=== PATIENT | female | born 1930 | race Caucasian/White ===

== ENCOUNTER → 2018-06-15 | Outpatient (CLI) | payer MEDICARE, OTHER ==
[~2018-06-15] MED LIST: COLACE 100 MG100 MG PO; ELIQUIS5 MG PO; OXYCODONE HCL 55 MG PO; SYNTHROID50 MCG PO; [UNRECOGNIZED DRUG - OTHER] PO
--- NOTE | 2018-06-15 16:38 | 2DMMODE ---
[place] [address] 2 D/M-MODE ECHOCARDIOGRAM Name: ROVERTO MOLINA Room: [facility]#: [id number] Admission: 06/15/18 Attend Phys: Kim Jiang Discharge: Date of : [birth year] Date of Service: 06/15/18 1638 Report #: [id number] THIS REPORT FOR: //name// APPROVED REPORT Study performed: 06/15/2018 15:47:16 EXAM: Comprehensive 2D, Doppler, and color-flow Echocardiogram Patient Location: Out-Patient Status: routine BSA: 1.79 HR: 78 bpm BP: 174/80 mmHg Other Information Study Quality: Good Indications Chest Pain 2D Dimensions IVSd: 11.30 (7-11mm) LVOT Diam: 20.68 (18-24mm) LVDd: 47.85 mm PWd: 10.05 (7-11mm) Ascending Ao: 31.42 (22-36mm) LVDs: 28.55 (25-40mm) Aortic Root: 28.43 mm Volumes Left Atrial Volume (Systole) LA ESV Index: 17.30 mL/m2 Aortic Valve AoV Peak Kyler.: 1.63 m/s AO Peak Gr.: 10.57 mmHg LVOT Max P.01 mmHg AO Mean Gr.: 5.12 mmHg LVOT Mean P.57 mmHg LVOT Max V: 1.00 m/s AO V2 VTI: 32.56 cm LVOT Mean V: 0.56 m/s MARITZA (VTI): 1.89 cm2 LVOT V1 VTI: 18.30 cm AI Meeker: 2.44 m/s2 AI PHT: 548.60 ms Mitral Valve E/A Ratio: 0.92 MV Decel. Time: 346.01 [place] [address] 2 D/M-MODE ECHOCARDIOGRAM Name: ROVERTO MOLINA Room: [facility]#: [id number] Admission: 06/15/18 Attend Phys: Kim Jiang Discharge: Date of : 11/26/[birth year] Date of Service: 06/15/18 1638 Report #: [id number] MV E Max Kyler.: 0.79 m/s MV PHT: 100.34 ms MVA (PHT): 2.19 cm2 TDI E/Lateral E': 13.17 E/Medial E': 8.78 Medial E' Kyler.: 0.09 m/s Lateral E' Kyler.: 0.06 m/s Pulmonary Valve PV Peak Kyler.: 0.74 m/s PV Peak Gr.: 2.17 mmHg Tricuspid Valve RAP Estimate: 5.00 mmHg TR Peak Gr.: 19.05 mmHg RVSP: 24.05 mmHg PA Pressure: 24.05 mmHg Left Ventricle The left ventricle is normal size. There is normal LV segmental wall motion. Mild concentric left ventricular hypertrophy. Left ventricular systolic function is normal. The left ventricular ejection fraction is within the normal range. LVEF is 60-65%. Grade I - abnormal relaxation pattern. Right Ventricle The right ventricle is normal size. The right ventricular systolic function is normal. Atria Left atrium is mildly dilated. The right atrium size is normal. Aortic Valve Mild aortic valve sclerosis. Mild aortic regurgitation. There is no aortic valvular stenosis. Mitral Valve Mild mitral annular calcification. Mild mitral regurgitation. No evidence of mitral valve stenosis. Tricuspid Valve The tricuspid valve is normal in structure. Mild tricuspid regurgitation. Pulmonic Valve The pulmonary valve is normal in structure. [place] [address] 2 D/M-MODE ECHOCARDIOGRAM Name: JESSEROVERTO Acuna Room: [facility]#: [id number] Admission: 06/15/18 Attend Phys: Kim Jiang Discharge: Date of : 11/26/[birth year] Date of Service: 06/15/18 1638 Report #: [id number] valvular regurgitation. Great Vessels The aortic root is normal in size. IVC is normal in size and collapses >50% with inspiration. Pericardium There is no pericardial effusion. <Conclusion> The left ventricle is normal size. Mild concentric left ventricular hypertrophy. Left ventricular systolic function is normal. The left ventricular ejection fraction is within the normal range. LVEF is 60-65%. Grade I - abnormal relaxation pattern. The right ventricle is normal size. Left atrium is mildly dilated. Mild aortic valve sclerosis. Mild aortic regurgitation. There is no aortic valvular stenosis. Mild mitral annular calcification. Mild mitral regurgitation. No evidence of mitral valve stenosis. The tricuspid valve is normal in structure. Mild tricuspid regurgitation. IVC is normal in size and collapses >50% with inspiration. There is no pericardial effusion. There is normal LV segmental wall motion. <ELECTRONICALLY SIGNED> By: Julio Cesar Marin MD, FACC 06/15/18 1638 [id number] Julio Cesar Marin MD, FACC /INF
--- NOTE | 2018-06-15 17:36 | CARDNUC ---
[place] [address] CARDIAC NUCLEAR IMAGING REPORT Name: ROVERTO MOLINA Room: [facility]#: [id number] Admission: 06/15/18 Attend Phys: Kim Jiang Discharge: Date of : 11/26/[birth year] Date of Service: 06/15/18 1736 Report #: [id number] THIS REPORT FOR: //name// APPROVED REPORT Study performed: 06/15/2018 12:45:00 Indication: Chest pressure, increased SOA, Pre Op exam. Patient Location: Out-Patient Stress Tech: [facility] Stress Nurse: Lorna Nesbitt RN Ht: 5 ft 6 in Wt: 149 lbs BSA: 1.76 m2 BMI: 24.04 Medical History Medical History: Angina, SOB Medications: None Allergies: Sulfa ABT, Penicillins, Erythromycin. Cardiac Risk Factors: Age, FHX of CAD Previous Cardiac Procedures: None Pretest Chest Pain Characteristics: No chest pain Exercise History: Sedentary Physical Disabilities: Age, generalized weakness, Cane for balance Meds Held (24 hrs): None Resting Data Rest SPECT myocardial perfusion imaging was performed in supine position 30 minutes following the intravenous injection of 11.9 mCi of Tc-99m Sestamibi. Time of rest injection: 13:00 The images were gated to evaluate regional wall motion and calculate left ventricular ejection fraction. Administration Route: IV Administration Site: Right AC Pharmacologic Stress Pharmacologic stress test was performed by injecting Regadenoson 0.4 mg IV push over 10-15 seconds immediately followed by the intravenous injection of 34.3 mCi of Tc-99m Sestamibi. Time of stress injection: 14:40 Administration Route: IV Administration Site: Right AC Heart Rate at time of stress injection: 94 [place] [address] CARDIAC NUCLEAR IMAGING REPORT Name: ROVERTO MOLINA Room: [facility]#: [id number] Admission: 06/15/18 Attend Phys: Kim Jiang Discharge: Date of : 11/26/30 Date of Service: 06/15/18 1736 Report #: [id number] Gated Stress SPECT was performed 40 minutes after stress injection. The images were gated to evaluate regional wall motion and calculate left ventricular ejection fraction. Stress Test Details Stress Test: Pharmacologic stress testing performed using 0.4 mg of regadenoson per 5 mL given IV over 10 seconds. Reason for pharmacologic stress test: physical limitation, Cane for balance, age, generalized weakness. HR Max Heart Rate (APMHR): 133 bpm Resting HR: 64 bpm Target HR (85% APMHR): 113 bpm Max HR Achieved: 94 bpm % of APMHR: 70 Recovery HR: 90 bpm BP Resting BP: 206/102 mmHg Recovery BP: 176/80 mmHg ECG Resting ECG: Sinus Rhythm Stress ECG: Sinus Rhythm ST Change: None Arrhythmia: APC's, VPC's Recovery ECG: Sinus Rhythm Recovery ST Change: None Recovery Arrhythmia: APC, VPC Clinical Reason for Termination: Completed protocol Stress Symptoms: stomach pressure Exercise duration: 0 min 0 sec Exercise capacity: 1.00 METs The patient tolerated Lexiscan infusion without significant symptoms. Nurse Comments 87 year old female patient, presented with cane for ambulation stability. Patient tolerated sitting lexiscan well with minimal side effects which were resolved with caffeine. Patient taken by staff via wheelchair to [facility] for images. Patient stable at that time, no complaints[place] [address] CARDIAC NUCLEAR IMAGING REPORT Name: ROVERTO MOLINA Room: [facility]#: [id number] Admission: 06/15/18 Attend Phys: Kim Jiang Discharge: Date of : 11/26/30 Date of Service: 06/15/18 1736 Report #: [id number] The baseline 12-lead EKG show sinus rhythm with occasional premature atrial and premature ventricular contractions. There were no significant ST or T wave abnormalities at baseline. EKGs obtained during and post Lexiscan infusion show sinus rhythm with no significant ST or T wave changes when compared to baseline. There continued to be occasional premature atrial and premature ventricular contractions. No other stress-induced arrhythmias. Study Quality Study: Good Artifact: No artifact Study Data At rest, the left ventricular ejection fraction was 63%.. Post stress, the left ventricular ejection was 67%.. TID = 0.94. Perfusion Normal left ventricular perfusion. Wall Motion Normal left ventricular wall motion. Nuclear Conclusion ECG Findings: negative for ischemia Clinical Findings: negative for ischemia Nuclear Findings: negative for ischemia Exercise Capacity: not assessed Left Ventricular Function: normal Risk Study: low Myocardial perfusion images show no defect to suggest infarct or ischemia. Left ventricular systolic function is normal on gated studies. This is a low risk study. <Conclusion> The baseline 12-lead EKG show sinus rhythm with occasional premature atrial and premature ventricular contractions. There were no significant ST or T wave abnormalities at baseline. EKGs obtained during and post Lexiscan infusion show sinus rhythm with no significant ST or T wave changes when compared to baseline. There continued to be occasional premature atrial and premature ventricular contractions. No other stress-induced arrhythmias. <ELECTRONICALLY SIGNED> By: Candelario Longoria MD, FACC 06/15/18 [phone] Candelario Longoria MD, FACC /INF
== END ==
LOC: M.NUC 06-03 08:00 → M.CRD 06-03 08:00 → M.NUC 12:32
DX: Z01.810 Encounter for preprocedural cardiovascular examination (principal); R07.89 Other chest pain

== ENCOUNTER 2018-07-11 06:12 | Inpatient (IN) | payer MEDICARE, OTHER ==
[2018-06-30 09:18] LABS: ABSOLUTE EOSINOPHILS 0.1 thou/uL (0.0-0.7); ABSOLUTE LYMPHOCYTES 0.7 thou/uL (0.8-5.3); ABSOLUTE MONOCYTES 0.3 thou/uL (0.0-1.2); ABSOLUTE NEUTROPHILS 3.1 thou/uL (1.6-8.1); BASOPHILS 1.1 %; EOSINOPHILS 2.9 %; HEMATOCRIT 43.4 % (37.0-47.0); HEMOGLOBIN 14.5 gm/dL (12.0-15.0); LYMPHOCYTES 16.4 %; MCH 30.4 pg (26.0-34.0); MCHC 33.3 g/dL (28.0-37.0); MCV 91.1 fL (80.0-100.0); MONOCYTES 7.7 %; NUCLEATED RBCS 0 /100WBC; PLATELET COUNT* 228 thou/uL (150-400); POLYS 71.9 %; RBC 4.76 mil/uL (4.20-5.00); RDW-CV 14.8 % (10.5-14.5); WBC 4.3 thou/uL (4.0-11.0)
[2018-06-30 09:20] LABS: ALBUMIN 3.6 g/dL (3.4-5.0); CALCIUM 9.3 mg/dL (8.5-10.1); CREATININE 1.1 mg/dL (0.6-1.3); POTASSIUM 3.3 mmol/L (3.5-5.1); TOTAL BILIRUBIN 1.3 mg/dL (<0.1-1.0)
[2018-06-30 10:03] LABS: ESR (SEDRATE) 3 mm/hr (0-30)
[2018-06-30 10:16] LABS: APTT 27.5 Seconds (25.0-31.3); INR 1.1; PROTIME 11.4 Seconds (9.20-11.50)
[~2018-07-11] VITALS: Ht 167.6 cm; Wt 69.4 kg
[~2018-07-11 06:12] MED LIST changes: -COLACE 100 MG100 MG PO; -ELIQUIS5 MG PO; -OXYCODONE HCL 55 MG PO
[2018-07-11 07:07] VITALS: BP 150/76
[2018-07-11 12:00] VITALS: BP 178/78
--- NOTE | 2018-07-11 15:02 | NUR ---
HR 33 WHILE ASLEEP. WHEN AWAKE HR 55. PATIENTS PRE OP HR 48. DAUGHTER STATES HR RUNS LOW AT HOME. PATIENT IS VERY SEDINTARY AND SITS IN CHAIR 90% OF DAY. NOTIFIED. ORDERS FOR TELE AND CARDIOLOGY CONSULT.
[2018-07-11 15:44] VITALS: BP 147/55
--- NOTE | 2018-07-11 17:00 | NUR ---
PATIENT TRANSFERRED TO ROOM 222. REPORT GIVEN TO SUZY DEMARCO. PATIENT AWAKE AND EATING. CARDIOLOGY ROUNDED ON PATIENT PRIOR TO TRANSFER. HR 33-45 WHILE ASLEEP. PATIENT AWAKE AND EATING WITH HR 64. DAUGHTER WITH PATIENT.
--- NOTE | 2018-07-11 17:46 | NUR ---
PATIENT TRANSFERRED FROM [facility] TO ROOM 222. REPORT RECEIVED FROM DAV MANSFIELD. REGIONAL PLANNER IN PLACE, TRACING SR/SB. CONT PULSE OX IN PLACE, PATIENT WAS ON 2L NC BUT DC'D PATIENT WAS 95% RA. IVF INFUSING, SCHED ABX. PATIENT UP TO BSC WITH ASSISTANCE; VOIDING CLEAR YELLOW URINE. PATIENT WAS INCONTINENT PRIOR TO VERY LARGE AMOUNT OF URINE. SCD'S/TEDS IN PLACE. BED ALARM ON FOR PATIENT SAFETY. CALL LIGHT WITHIN REACH, WILL CONTINUE TO MONITOR.
[2018-07-11 20:00] VITALS: BP 154/79
[2018-07-12] VITALS: BP 136/64
[2018-07-12 04:00] VITALS: BP 118/48
[2018-07-12 05:29] LABS: HEMATOCRIT 36.1 % (37.0-47.0); HEMOGLOBIN 12.2 gm/dL (12.0-15.0)
--- NOTE | 2018-07-12 06:07 | NUR ---
PATIENT PARTIALLY PROGRESSING TOWARDS GOALS: PATIENT HAD C/O PAIN ONCE THIS SHIFT, RELIEVED WITH ICE, MEDICATION, AND REPOSITIONING. PATIENT INCONTINENT OF URINE THIS SHIFT. PEPE CARE PROVIDED WITH INCONTINENCE CHECKS. PATIENT BRADYCARDIC AT TIMES, ASYPTOMATIC. HOURLY ROUNDING OBSERVED. CALL LIGHT WITHIN REACH.
[2018-07-12 08:00] VITALS: BP 88/40
--- NOTE | 2018-07-12 09:49 | NUR ---
Pt is A&O. Resides at home with her dtr, in a finished basement apartment. Pt is independent, continues to do her own cooking and cleaning. There are 12 steps up to the main level of the house. Pt does not drive any longer, stopped driving when she turned 80 years old. Pt has a walker, cane, and wc at home. No hx of HH or SNF. Pt open to HH [place], wants to use [facility] [place], p:[phone], f:[phone]
--- NOTE | 2018-07-12 10:50 | NUR ---
ASSUMED CARE OF PT AT 0730. PT RESTING IN BED. PT A&0X4, DENIES ANY PAIN OR SHORTNESS OF BREATH AT THIS TIME. PT TRACING SR WITH PACS ON THE WEB CONTENT & SOCIAL MEDIA MANAGER. BLOOD PRESSURE SOFT THIS AM- WILL MONITOR CLOSELY. PT ON RA SAT 96%, CONTINUOUS PULSE OX IN PLACE, DENIES ANY SHORTNESS OF BREATH. PT UP WITH 1 ASSIST WALKER AND GAIT BELT, WBAT LLE- PT INCONT THIS AM AND VOIDED IN BSC. PT GOAL FOR TODAY IS WORK WITH PHYSICAL AND OCCUPATIONAL THERAPY, PAIN MGMT AND MONITOR BLOOD PRESSURE AND HEART RATE/RHYTHM CLOSELY. AM ASSESSMENT CHARTED. MEDICATIONS PER OCT. PT REPOSITIONS SELF WITH REMINDERS. HOURLY ROUNDING OBSERVED. BED IN LOW POSITION. CALL LIGHT WITHIN REACH. FALL PRECAUTIONS IN PLACE. WILL CONTINUE PLAN OF CARE.
[2018-07-12 11:13] VITALS: BP 114/61
[2018-07-12 15:48] VITALS: BP 158/86
--- NOTE | 2018-07-12 18:31 | NUR ---
NO ACUTE CHANGES THROUGHOUT SHIFT. REFER TO CHARTING. PT SLOWLY PROGRESSING TOWARDS GOALS. PT WORKED WITH PHYSICAL AND OCCUPATIONAL THERAPY TODAY- TOLERATED WELL. PT INCONT OF URINE THROUGHOUT SHIFT- BLADDER SCANNED THIS EVENING AFTER VOIDING- PVR 680. ESCUDERO CATHETER INSERTED FOR RETENTION WITH NO DIFFUCLTIES. ESCUDERO DRAINING CLEAR YELLOW URINE. CONTINUOUS PULSE OX DC'D THIS AFTERNOON- SATURATION 99% ON RA. DENIES ANY SHORTNESS OF BREATH. PT GIVEN PAIN MEDICATION BEFORE PHYSICAL THERAPY WITH RELIEF. PT CONTINUES TO TRACE SR WITH PAC'S ON THE Z OS MAINFRAME SYSTEMS PROGRAMMER. IVF. PT UP WITH 1 ASSIST AND WALKER TO BATHROOM-WBAT LLE. MEDICATIONS PER OCT. PT REPOSITIONED EVERY 2 HOURS FOR COMFORT. HOURLY ROUNDING OBSERVED. BED IN LOW POSITION. CALL LIGHT WITHIN REACH. FALL PRECAUTIONS IN PLACE. WILL CONTINUE PLAN OF CARE.
[2018-07-12 20:00] VITALS: BP 151/72
[2018-07-13] VITALS (7 sets, daily range): BP systolic 125–147; BP diastolic 53–71
--- NOTE | 2018-07-13 05:23 | NUR ---
ASSUMED CARE OF PT AT 1930. RESTED WELL THROUGOUGHT SHIFT. PAIN MEDICATION GIVEN WITH GOOD RESULT. PT. REFUSED REPOSIONING AND Q 2 TURNS-PATIENT EDUCATED. REMAINED SR W/ PAC'S ON HEART MONITOR. LEFT HIP DRESSING CD/I. SAFETY PRECAUTIONS IN PLACE. CALL TWIN MAURER. PERFORED HORULY ROUNDING. NURSING WILL CONTINUE TO MONITOR.
[2018-07-13 05:45] LABS: HEMATOCRIT 32.3 % (37.0-47.0); HEMOGLOBIN 10.9 gm/dL (12.0-15.0)
[2018-07-13] MEDS ORDERED: OXYCODONE HCL 55 MG PO (10:12)
[2018-07-13] MEDS ORDERED: ELIQUIS5 MG PO (10:12)
[2018-07-13] MEDS ORDERED: COLACE 100 MG100 MG PO (10:12)
--- NOTE | 2018-07-13 11:37 | NUR ---
Pt is discharging to home today, CM faxed dc orders to [facility].
--- NOTE | 2018-07-13 11:59 | NUR ---
ASSUMED PT CARE AT 0700 PT IS ALERT AND ORIENTED X 3-4 HAS SOME FORGETFULNESS, PT DENIES PAIN OR SOA ON2L/NC, PT IS UP WITH ASSIST X 1 WITH WALKER PT REFUSED Q 2 TURNS, PT IS UP IN CHAIR HAS WORKED WITH PHYSICIAL THERAPY PT CALLED OUT CONCERNED ABOUT NAVIGATING STAIRS AT HOME PHYSICAL THERAPY STATES THAT PT STATED DID NOT HAVE STAIRS TO NAVIGATE PHYSICIAL THERAPY WILL WORK WITH PT ON STAIRS BEFORE PT CAN DISCHARGE, PT IS SR PAC ON THE MONITOR, PT INSICION IS CLEAN DRY INTACT, WILL CONTINUE TO MONITOR
--- NOTE | 2018-07-15 07:16 | OP ---
[address] [address] OPERATIVE REPORT Name: ROVERTO MOLINA Room: [address]#: [id number] Admission: 07/11/18 Attend Phys: Luke Kearns Discharge: 07/13/18 Date of : [birth year] Report #: [id number] THIS REPORT FOR: //name// CC: Javier Alberts DICTATED BY: Arnie Moses DO DATE OF SERVICE: 07/11/2018 PREOPERATIVE DIAGNOSIS: Left hip degenerative joint disease. POSTOPERATIVE DIAGNOSIS: Left hip degenerative joint disease. PROCEDURE: Left total hip arthroplasty with anterior supine intermuscular approach utilizing Biomet G7 total hip system with the following components, 1. A 54 mm G7 finned 4-hole acetabular shell. 2. A 36 mm G7 high wall acetabular ArCom polyethylene acetabular liner. 3. Size 8 micro Taperloc femoral stem, standard offset. 4. A 36 mm diameter ceramic femoral head with +3 mm neck taper adaptor. 5. A 30 mm and 25 mm acetabular screws. SURGEON: Rafa Hu DO POWER HAIR CLIPPER: Arnie Moses DO ANESTHESIA: General. ESTIMATED BLOOD LOSS: 400 mL. ANTIBIOTICS: 600 mg clindamycin IV preoperatively. DRAINS: None. SPECIMENS: Femoral head was sent for permanent specimen as she has a remote history of lymphoma diagnosis. COMPLICATIONS: None. DISPOSITION: Stable to PACU and will be admitted to the hospital for standard postoperative care. INDICATION FOR PROCEDURE: The patient is a pleasant 87-year-old female who was seen in [facility] with chronic complaints of left hip pain for many years. On radiograph, she had advanced degenerative joint disease of her left [facility] [address] [place] [address] OPERATIVE REPORT Name: ROVERTO MOLINA Room: [address]#: [id number] Admission: 07/11/18 Attend Phys: Luke Kearns Discharge: 07/13/18 Date of : 11/26/[birth year] Report #: [id number] with complete obliteration of joint space, subchondral sclerosis noted, osteophytic lipping noted as well as subchondral cystic formation both acetabulum and femoral head. Pain was refractory to conservative measures consisting of oral anti-inflammatories, activity modifications, home physical therapy exercises for much greater than 6 months' duration. Therefore, we recommended proceeding with a left total hip arthroplasty. All risks, benefits, complications, indications, alternative treatments were discussed and the patient wished to proceed with surgery today. DESCRIPTION OF PROCEDURE: The patient was seen in preoperative holding area, correct operative site, left hip was initialed. The patient was taken back to operating suite, placed in supine position on the operating table, was a Peabody traction table. Given benefit of general anesthetic, a well-padded traction boots were placed on the bilateral feet. The patient was positioned in the normal fashion on the Peabody traction table with a well-padded perineal post. Her arms were well padded and folded across her chest in the normal fashion. All bony prominences were well padded. Left hip was prepped and draped in typical fashion. Surgery began at the time identifying correct patient, correct procedure, correct operative site and preoperative antibiotics and correct performing surgeon. Next, a standard anterior approach to the left hip was performed. We started our incision roughly 2 cm distal and 2 cm lateral to the ASIS extending roughly 30 degrees lateral when proceeding distally. A skin incision was made with a 10 blade scalpel roughly 6-7 cm in length. Subcutaneous bleeders were cauterized with electrocautery. Sharp dissection was taken down until tensor fascia was encountered. Tensor fascia was incised with a deep 10 blade scalpel and that was elevated both in the lateral and medial direction. Tensor and sartorius interval was readily palpable at this time as well as the saddle and the superior neck were palpable. We then cauterized our ascending branch of our lateral femoral circumflex arteries utilizing Aquamantys. Deep fascia was incised utilizing electrocautery. Pericapsular fat was excised. Next, a 7 and 6 retractors were placed superior and inferior to the femoral neck extracapsularly. Capsule was encountered. Rectus was elevated utilizing combination of electrocautery and a Mace elevator, a #9 retractor was placed over the anterior column of the pelvis very carefully. Retraction was very light throughout the case to avoid any femoral nerve traction. Aquamantys was used to prepare the anterior capsule for capsulectomy. Capsulectomy of the anterior capsule was performed utilizing electrocautery. Femoral neck was cut in the normal fashion 1 cm proximal to the lesser trochanter just off the intertrochanteric ridge. A napkin ring cut was performed more proximal in the femoral neck. A wafer of bone was removed followed by removal of the femoral head with bone tenaculums. Head was measured on the back table. Remaining retractors were positioned to provide appropriate exposure to her acetabulum. Remaining labrum and soft tissue debris were [facility] [address] [place] [address] OPERATIVE REPORT Name: ROVERTO MOLINA Room: [address] IN [facility]#: [id number] Admission: 07/11/18 Attend Phys: Luke Kearns Discharge: 07/13/18 Date of : 11/26/30 Report #: [id number] removed around the periphery of the acetabulum as well as remnants in the cotyloid fossa utilizing electrocautery. Next, sequential reaming was performed up to a size 53 mm reamer, planning for a 54 mm shell. We had good bleeding cancellous bone. We were down to our inner table of our cotyloid fossa or true acetabulum. This cut was confirmed on C-arm fluoroscopy. Next, we impacted our acetabular shell in the appropriate amount of abduction angle and anteversion angle judging by our external guide and confirmed this on C-arm fluoroscopy. Next, 2 acetabular screws of 30 mm and 25 mm were drilled and filled in normal fashion. We placed our center manhole cover and then placed and impacted our 36 mm high wall acetabular liner with a high wall in an anterior superior direction. Next, attention was turned to our proximal femur. Both the inferior and superior capsular releases were performed in a normal fashion. A #5 and #8 retractors retractors were placed in normal fashion. Leg was extended and abducted and externally rotated in normal fashion without any traction. A box osteotome was used to enter the proximal aspect of the femur followed by a canal finder. Sequential broaching was performed up to a size 7 and then finalized with the 8 mm broach as we did have some looseness in the metaphysis with a 7 mm broach after trialing. We placed the 8 mm broach, which seemed to have appropriate fit. We trailed a standard offset and a -3 neck length. The hip was taken through range of motion and felt to be stable in all planes with no signs of dislocation. We were a little bit short on leg length when compared to the contralateral side on our AP pelvis fluoroscopy views. We elected for a +3 final neck length due to being short on the operative side. We removed our trial femoral components. Thoroughly irrigated the canal, impacted our final [address], impacted our final 36 mm ceramic head and +3 mm taper neck adapter. Hip was reduced in the normal fashion. Hip again was taken through range of motion and felt to be stable in all planes with no signs of subluxation or dislocation. Took final C-arm radiographs, confirmed appropriate femoral stem size, appropriate placement of our acetabular shell and had appropriate leg length nearly symmetric. Next, the wound was thoroughly irrigated. Fascia of the tensor and sartorius was closed in a running fashion with a #1 Stratafix double-ended suture. Subcutaneous tissues were closed in a simple inverted fashion with 2-0 Monocryl suture. A running 3-0 subcuticular Stratafix was performed. Dermabond was applied to the skin. A Mepilex was applied as our standard dressing. The patient was weaned from general anesthetic, transferred in stable condition to PACU. All sponge, needle counts were correct x 2. <ELECTRONICALLY SIGNED> By: Matt Banuelos DO 07/15/18 0716 [id number] 1851Rnathan Hu DO /monica
--- NOTE | 2018-07-15 16:09 | PATH ---
[address] [address] PATHOLOGY RPT PROCEDURE Name: ROVERTO MOLINA Room: [address] ..#: [id number] Admission: 07/11/18 Date of : [birth year] Discharge: 07/13/18 Report #: [id number] Path Case #: [id number] [facility] Accession Number: [id number] . 01 Material submitted: . LEFT FEMORAL HEAD . 01 Clinical history: . Left hip DJD . 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 (MARYJO:pit 07/13/2018) QTP/07/13/2018 . 02 Electronically signed: . Hussein Razo MD, Pathologist NPI- [id number] . 01 Gross description: . Received in formalin labeled "Roverto Molina, left femoral head," is a femoral head measuring 5.1 x 4.8 x 3.8 cm in greatest dimensions. The articular surface is smooth to granular and pale cox to dark brown in appearance, displaying an area of focal eburnation/pitting measuring 3.1 x 1.9 cm. Sectioning reveals multiple possible subcortical cysts filled with pale yellow to hemorrhagic, friable material ranging from 0.5 to 1.5 cm in maximum dimension. Hardness Inspector eburnation and possible subcortical cysts are submitted in cassettes A1 and A2, following decalcification. (DAC; 07/12/2018) XDC/XDC . 02 Pathologist provided ICD-10: M16.12 . 02 CPT . 084096, 333707 Specimen Comment: A courtesy copy of this report has been sent to Specimen Comment: [phone], , . Specimen Comment: Report sent to , DR GUALLPA / CHLOE Specimen Comment: A duplicate report has been generated due to demographic updates. Performed at: [address] [facility] [id number] MD Duane Sandoval MD Phone: [phone] Performed at: [address] [place] [address] PATHOLOGY RPT PROCEDURE Name: ROVERTO MOLINA Room: [address] IN [facility].#: [id number] Admission: 07/11/18 Date of : 11/26/30 Discharge: 07/13/18 Report #: [id number] Path Case #: [id number] [facility] Filemon Christina [address] [place] Escobedo, HOWARD Weber [id number] MD Hussein Razo MD Phone: [phone]
== END 2018-07-13 15:14 | disposition home health service (06) | DRG 470 ==
LOC: M.2W 06:12 → M.TBA 06:12 → M.ORTHSURG 06:12 → M.PRE 06:38 → M.ORTHSURG 11:23 → M.PRE 14:05 → M.2W 16:51
PROVIDERS: Orthopaedic Surgery; ADMIT Internal Medicine
PROC: 0SRB04Z Replacement of Left Hip Joint with Ceramic on Polyethylene Synthetic Substitute, Open Approach (ICD-10-PCS; principal; 2018-07-11)
DX: M16.12 Unilateral primary osteoarthritis, left hip (principal); E03.9 Hypothyroidism, unspecified; Z96.1 Presence of intraocular lens; R00.1 Bradycardia, unspecified; T44.8X5A Adverse effect of centrally-acting and adrenergic-neuron-blocking agents, initial encounter; I95.9 Hypotension, unspecified; R33.9 Retention of urine, unspecified; I10 Essential (primary) hypertension; Z88.0 Allergy status to penicillin; Z88.2 Allergy status to sulfonamides; Z88.1 Allergy status to other antibiotic agents; Z85.72 Personal history of non-Hodgkin lymphomas; Z90.710 Acquired absence of both cervix and uterus; Z98.41 Cataract extraction status, right eye; Z98.42 Cataract extraction status, left eye; Z90.49 Acquired absence of other specified parts of digestive tract; Y92.89 Other specified places as the place of occurrence of the external cause